=== PATIENT | male | born 1995 | race Caucasian/White ===

== ENCOUNTER 2020-06-26 06:54 | Outpatient (NON) | payer SELFPAY ==
[2020-06-26 19:24] LABS: SARS-CoV-2 RNA PCR Negative
== END 2020-06-26 06:55 ==
PROVIDERS: PCP Nurse Practitioner Family; Visit Provider Nurse Practitioner Family
DX: R50.9 Fever, unspecified (principal); Z20.822 Contact with and (suspected) exposure to COVID-19
CPT/HCPCS: C9803; U0003